=== PATIENT | male | born 1995 | race Caucasian/White ===

== ENCOUNTER 2018-12-21 18:15 | Emergency (ER) | payer SELFPAY ==
[~2018-12-21] VITALS: Ht 170.2 cm; Wt 79.4 kg
[2018-12-21 18:19] VITALS: BP_SYST 141
== END 2018-12-21 19:25 | disposition left against medical advice (07) ==
LOC: SED 18:15
DX: M79.642 Pain in left hand (principal); Z53.21 Procedure and treatment not carried out due to patient leaving prior to being seen by health care provider

== ENCOUNTER 2018-12-21 21:26 | Emergency (ER) | payer SELFPAY ==
[~2018-12-21] VITALS: Ht 177.8 cm; Wt 59.0 kg
[2018-12-21 21:35] VITALS: BP_SYST 120
[2018-12-21 22:20] VITALS: BP_SYST 118
== END 2018-12-21 22:19 | disposition home or self-care (01) ==
LOC: SED 21:26
DX: S60.322A Blister (nonthermal) of left thumb, initial encounter (principal); X58.XXXA Exposure to other specified factors, initial encounter; Y93.89 Activity, other specified; Y92.89 Other specified places as the place of occurrence of the external cause; Y99.8 Other external cause status
CPT/HCPCS: 99283

== ENCOUNTER 2022-04-28 22:42 | Emergency (ER) | payer MEDICAID ==
[~2022-04-28] VITALS: Ht 170.2 cm; Wt 72.6 kg
[2022-04-28 22:47] VITALS: BP_SYST 141
[2022-04-28] MEDS ORDERED: VALA10002 PO (23:10)
[2022-04-29 00:13] VITALS: BP_SYST 127
== END 2022-04-29 00:13 | disposition home or self-care (01) ==
LOC: SED 22:42
DX: A60.00 Herpesviral infection of urogenital system, unspecified (principal); N48.29 Other inflammatory disorders of penis; Z79.899 Other long term (current) drug therapy
CPT/HCPCS: 36415; 87252; 87491; 99283